=== PATIENT | male | born 1950 | race Caucasian/White ===

== ENCOUNTER → 2016-07-10 | Outpatient (CLI) | payer MEDICARE, OTHER ==
[~2016-07-10] MED LIST: ATIVAN-DPS1 MG PO; ATIVAN1 MG PO; BUSPAR DPS10 MG PO; BUSPAR DPS15 MG PO; CEPACOL SORE T1 EAC1 PO; COZAAR25 MG PO; DELTASONE DPS10 MG PO; DILANTIN DPS100 MG PO; DUONEB DPS3 ML IH; HYDROCODONE 7.5 MG PO; LEVAQUIN500 MG PO; LEVAQUIN750 MG PO; LORTAB 5-325 M1 EACH PO; LOSARTAN 50MG PO; METOPROLOL PO; MUCINEX PO; NEURONTIN DPS300 MG PO; OMEPRAZOLE20 MG PO; PHENYTEK200 MG PO; PHENYTOIN EX PO; PREDNISONE PO; PRILOSEC20 MG PO; PROAIR HFA8.5 GM IH; PROVENTIL HFA6.7 GM IH; SIMVASTATIN40 MG PO; SYMBICORT160 MCG/6 IH; TOPROL XL100 MG PO; TYLENOL PO; WELLBUTRIN100 MG PO; ZANAFLEX4 MG PO; ZOCOR40 MG PO
== END | disposition home or self-care (01) ==
LOC: RESC 06-23 09:00
DX: J44.9 Chronic obstructive pulmonary disease, unspecified (principal)